=== PATIENT | female | born 1995 | race African-American/Black ===

== ENCOUNTER 2025-07-15 21:20 | Emergency (ER) | payer OTHER ==
[~2025-07-15] VITALS: Ht 160 cm; Wt 59.0 kg
[2025-07-15 21:33] VITALS: O2SAT 98
[2025-07-15] MEDS: METOCLOPRAMIDE HCL 10MG TABLET PO ONE (22:39)
[2025-07-15] MEDS: KETOROLAC 15MG/ML VIAL IM ONE (22:39)
[2025-07-15] MEDS: LIDOCAINE 5% PATCH TOP SCH (22:40)
[2025-07-15] MEDS ORDERED: LIDO-53 TP (23:35)
[2025-07-15] MEDS ORDERED: CYCL5TAB3 MT (23:35)
[2025-07-15] MEDS ORDERED: NAPR-1176 MT (23:35)
[2025-07-16 00:05] VITALS: BP 105/63; PULSE 67; RESP 18; TEMP 36.8; O2SAT 100
== END 2025-07-16 00:09 | disposition home or self-care (01) ==
LOC: ER 21:20
DX: S09.90XA Unspecified injury of head, initial encounter (principal); M54.2 Cervicalgia; Z79.1 Long term (current) use of non-steroidal anti-inflammatories (NSAID); V89.2XXA Person injured in unspecified motor-vehicle accident, traffic, initial encounter; Y93.89 Activity, other specified; Y92.410 Unspecified street and highway as the place of occurrence of the external cause; Y99.8 Other external cause status
CPT/HCPCS: 99283; 81025; 96372; J1885; J8597